=== PATIENT | female | born 1995 | race Caucasian/White ===

== ENCOUNTER 2017-07-14 01:15 | Emergency (ER) | payer OTHER ==
[~2017-07-14] VITALS: Ht 162.6 cm; Wt 70.0 kg
[2017-07-14 01:17] VITALS: BP 125/60; PULSE 100; RESP 17; TEMP 97.8; O2SAT 96
[2017-07-14 01:29] VITALS: O2SAT 93; O2SAT 98
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
[2017-07-14 01:53] LABS: AUTOMATED NEUTROPHIL # 3.5 TH/MM3 (1.8-7.7); BASOPHIL % 0.7 % (0.0-2.0); EOSINOPHIL # 0.4 TH/MM3 (0-0.4); EOSINOPHIL % 5.8 % (0.0-4.0); HEMATOCRIT 36.2 % (35.0-46.0); HEMOGLOBIN 12.2 GM/DL (11.6-15.3); LYMPH % 27.9 % (9.0-44.0); LYMPHOCYTE # 1.7 TH/MM3 (1.0-4.8); MEAN CELL VOLUME 88.8 FL (80.0-100.0); MEAN CORPUSCULAR HGB CONC 33.8 % (32.0-36.0); MEAN PLATELET VOLUME 9.3 FL (7.0-11.0); MONO % 7.5 % (0.0-8.0); MONOCYTE # 0.5 TH/MM3 (0-0.9); NEUT % 58.1 % (16.0-70.0); PLATELET COUNT 152 TH/MM3 (150-450); RED BLOOD COUNT 4.08 MIL/MM3 (4.00-5.30); RED CELL DISTRIBUTION WIDTH 14.6 % (11.6-17.2); WHITE BLOOD COUNT 6.1 TH/MM3 (4.0-11.0)
[2017-07-14 02:01] LABS: PROTHROMBIN TIME - PATIENT 10.4 SEC (9.8-11.6)
[2017-07-14 02:14] LABS: BICARBONATE 29.3 MEQ/L (21.0-32.0); CALCIUM 8.6 MG/DL (8.5-10.1); CREATININE 0.92 MG/DL (0.50-1.00)
[2017-07-14] MEDS ORDERED: IOHEXOL 350 MG/ML 10 ML VIAL (for RAD DIAG) IVCONTRAST ONE (02:26)
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
[2017-07-14] MEDS ORDERED: ceFAZolin 2 GM PREMIX 50 ML IV ONE (03:15)
[2017-07-14] MEDS ORDERED: ACETAMINOPHEN 325 MG TAB PO ONE (03:15)
[2017-07-14] MEDS ORDERED: DIPHTH/TETANUS/ACEL PERTUSSIS (BOOSTER) 0.5 ML VIAL/PFS IM ONE (03:15)
--- NOTE | 2017-07-15 00:14 | EKG ---
Date Performed: 07/14/2017 Time Performed: 01:39:23 PTAGE: 22 years EKG: SINUS TACHYCARDIA ABNORMAL RHYTHM ECG NO PREVIOUS TRACING DOCTOR: Mohinder Mancilla Interpretating Date/Time 07/15/2017 00:12:32
== END 2017-07-14 04:25 | disposition home or self-care (01) ==
LOC: NEPC 01:15
DX: M54.2 Cervicalgia (principal); R51 Headache; R07.89 Other chest pain; F17.210 Nicotine dependence, cigarettes, uncomplicated; S09.90XA Unspecified injury of head, initial encounter; R00.0 Tachycardia, unspecified; V47.5XXA Car driver injured in collision with fixed or stationary object in traffic accident, initial encounter; Y93.C2 Activity, hand held interactive electronic device; Z23 Encounter for immunization
CPT/HCPCS: 70450; 71045; 71260; 72125; 72129; 74177; 80048; 84703; 85025; 85610; 85730; 90471; 90715; 93005; 96365; 99285; J0690; Q9967